=== PATIENT | female | born 1975 | race Caucasian/White ===

== ENCOUNTER 2025-01-16 04:04 | Emergency (ER) | payer OTHER, SELFPAY ==
[2025-01-16 04:13] VITALS: BP 119/81
[2025-01-16 04:55] VITALS: BMI 26.4
[2025-01-16 05:14] LABS: COVID-19 Antigen Negative (Negative)
--- NOTE | 2025-01-16 06:41 | ED.GENMED ---
History of Present Illness
General
Chief Complaint: Cold/Flu/URI Symptoms
Source: patient
Exam Limitations: none
Time Seen by Provider: 01/16/25 06:38
Nursing documentation reviewed up to this point in time: agreed with
History of Present Illness
History of Present Illness:
49-year-old female presents to the emergency department complaining of sore throat, cough, congestion. She has felt better, but has a hacking cough and had some chest tightness with the cough.
Past History
Past History
ED Past Medical History: None
ED Past Surgical History: and Orthopedic (thumb ligament)
Social History
Tobacco: Non-smoker
Alcohol: None
Drug: None
Personal:
Living: with family
Review of Systems
Review of Systems
Allergies reviewed?: Yes
All Other Systems: Not applicable
Constitutional: Reports no symptoms
EENT: Reports no symptoms
Respiratory: Reports cough and trouble breathing
Cardiac: Reports no symptoms
ABD/GI: Reports no symptoms
: Reports no symptoms
Musculoskeletal: Reports no symptoms
Skin: Reports no symptoms
Neurological: Reports no symptoms
Endocrine: Reports no symptoms
Hematologic/Lymphatic: Reports no symptoms
Psychiatric: Reports no symptoms
Phy Exam
Physical Exam
Physical Exam:
Physical Exam
General: no apparent distress, not acutely ill
Neck: supple. no meningeal signs. normal posterior pharynx
Heart: s1/s2 regular rate and rhythm, no murmur. equal radial
pulses.
HEENT: Pupils equal round reactive to light, EOMI
Lungs: no acute respiratory distress. clear bilaterally, intermittent cough
Abdomen: normal bowel sounds. not tender. no CVAT
Neuro: alert and oriented. no focal neurological deficits cranial nerves II through XII intact
Skin: no rash
Psychiatric: well kept. interactive and cooperative
Extremities: no edema. no calf tenderness. negative homans. good distal pulses
Course
Orders/Labs/Results
Orders:
Orders
01/16/25 04:05
Electrocardiogram (*1) Urgent
Reason for Study: Chest Pain
Other Reason for Exam: sob
01/16/25 04:06
EKG- Treatment ONCE
01/16/25 04:20
Chest [CR Chest - 2 Views ] Urgent
Comment:
Reason For Exam: persistent hacking cough x 1 week
01/16/25 04:22
COVID-19 Antigen Urgent
Source: Nasal Swab
Influenza A+B Rapid Molecular Urgent
TISH Source: Nasal Swab
Specimen Description:
01/16/25 04:05
01/16/25 04:05
Vital Signs
Initial and Last Documented VS:
Initial Vital Signs
Temp Pulse Resp BP Pulse Ox
98.8 F 86 18 119/81 97
01/16/25 04:13 01/16/25 04:13 01/16/25 04:13 01/16/25 04:13 01/16/25 04:13
Last Documented Vital Signs
Temp Pulse Resp BP Pulse Ox
98.8 F 86 18 119/81 97
01/16/25 04:13 01/16/25 04:13 01/16/25 04:13 01/16/25 04:13 01/16/25 04:13
MDM/Problems Addressed
Differential Diagnosis Includes:
Pneumonia, influenza
MDM/Problems Addressed:
49-year-old female with cough, likely bronchitis. Chest x-ray normal. Normal EKG, negative influenza and COVID. Treat with short course of prednisone. Follow-up with primary care. Return precautions given.
*Radiology
Radiology exam reviewed: preliminary read by ED provider (Chest x-ray no acute findings)
*Pulse Oximetry
Patient hypoxic: no
*EKG
Interpreted by ED Provider?: Yes
EKG Intrepretation Date: 01/16/25
EKG Intrepretation Time: 04:10
Interpretation: normal
Comparison EKG: no comparison EKG present
Heart Rate: 93
Rate: normal
Rhythm: sinus
[place]: normal axis
Interval: normal interval
QRS Pattern: normal QRS
Ischemia: no ischemia
*[employer] Interpretation
Rate: [employer]- N/A
*Critical Care Note
Total Time (30-74mins, 75-104mins- exclusive of procedures): Not Applicable
Data Reviewed
Review of Other/Old Records Reveals: Radiology Studies (Prior chest x-ray from 2010 normal)
Source: records
Patient Management
Social determinants of health affecting care: Living situation
Escalation/DeEscalation of care consider admission/obs:
Admit not indicated
ED Attending Note
-
Portions of this chart may have been created with voice recognition software.� Occasional wrong word or��sound alike� substitutions may have occurred due to the inherent limitations of voice recognition software.
Discharge Plan
Departure
Patient Disposition: Home (Routine Discharge)
Date of Disposition: 01/16/25
Time of Disposition: 06:57
Patient with high blood pressure during this ER visit?: No
Condition: Good
Discharge Problem:
Acute bronchitis
Instructions: Acute Bronchitis, Adult (DC)
Prescriptions:
New
prednisone 50 mg tablet
50 mg PO DAILY Qty: 5 0RF
Referrals:
Agatha Smallwood CRNP [Family Provider] - Call in 1-3 days for appt
Interventions
Interventions:
*Risk Screen - Suicide Last Done: 01/16/25 04:13
*General Assessment Last Done: 01/16/25 04:57
*Neglect/Abuse Screening Last Done: 01/16/25 04:57
ED- Fall Risk Assessment Last Done: 01/16/25 05:04
*ED COVID-19 Vaccine History Last Done: 01/16/25 04:57
ED- Pulmonary Assessment Last Done: 01/16/25 05:04
Discharge Date and Time
Print Language: IRISH
[2025-01-16] MEDS: DELTASONE 50 MG PO (07:06)
== END 2025-01-16 07:15 | disposition home or self-care (01) ==
LOC: EMR 04:04
PROVIDERS: Student in an Organized Health Care Education/Training Program; EMERGENCY PHYSICIAN Emergency Medicine; FAMILY PHYSICIAN Nurse Practitioner Family
DX: J20.9 Acute bronchitis, unspecified (principal)
CPT/HCPCS: 99283; 71046; 87502; 87811; 93005